=== PATIENT | male | born 1980 | race African-American/Black ===

== ENCOUNTER 2019-07-25 20:20 | Emergency (ER) | payer SELFPAY ==
[~2019-07-25] VITALS: Ht 172.7 cm; Wt 59.0 kg
[2019-07-25 20:35] VITALS: BP 154/100
--- NOTE | 2019-07-25 20:38 | NUR ---
TO BED # 02 AMBULATORY
--- NOTE | 2019-07-25 21:02 | NUR ---
39 Y/O MALE PLACED IN BED 2 C/O G-TUBE MECHANICAL FAILURE. THE BALLOON POPPED
--- NOTE | 2019-07-25 21:56 | NUR ---
PATIENT LEFT WITHOUT BEING SEEN AT THIS TIME. STATES HE DOES NOT WANT TO WAIT ANY MORE.
== END 2019-07-25 21:56 | disposition left against medical advice (07) ==
LOC: MED 20:20
DX: Z43.1 Encounter for attention to gastrostomy (principal); Z53.21 Procedure and treatment not carried out due to patient leaving prior to being seen by health care provider

== ENCOUNTER 2023-01-24 16:50 | Emergency (ER) | payer OTHER, MEDICAID ==
[~2023-01-24] VITALS: Ht 172.7 cm; Wt 54.4 kg
[2023-01-24 17:01] VITALS: BP 111/76; PULSE 84; RESP 18; TEMP 97.8; O2SAT 100
[2023-01-24 17:33] VITALS: BP 112/76; PULSE 82; RESP 18; TEMP 98; O2SAT 100
== END 2023-01-24 17:33 | disposition home or self-care (01) ==
LOC: MED 16:50
DX: K94.23 Gastrostomy malfunction (principal); Z79.899 Other long term (current) drug therapy
CPT/HCPCS: 99281

== ENCOUNTER 2023-02-07 14:41 | Emergency (ER) | payer OTHER, MEDICAID ==
[~2023-02-07] VITALS: Ht 172.7 cm; Wt 52.2 kg
[2023-02-07 14:51] VITALS: BP 119/41; PULSE 85; RESP 18; TEMP 97.8; O2SAT 99
== END 2023-02-07 16:38 | disposition home or self-care (01) ==
LOC: MED 14:41
DX: K94.23 Gastrostomy malfunction (principal); Z79.899 Other long term (current) drug therapy
CPT/HCPCS: 43246; 74018; 99284; Q0092

== ENCOUNTER 2023-06-13 20:38 | Emergency (ER) | payer OTHER, MEDICAID ==
[~2023-06-13] VITALS: Ht 172.7 cm; Wt 54.4 kg
[2023-06-13 20:40] VITALS: BP 107/78; PULSE 75; RESP 17; TEMP 98; O2SAT 100
[2023-06-13 21:45] VITALS: BP 107/78; PULSE 75; RESP 17; TEMP 98; O2SAT 100
== END 2023-06-13 21:45 | disposition home or self-care (01) ==
LOC: MED 20:38
DX: K94.23 Gastrostomy malfunction (principal); I10 Essential (primary) hypertension; Z90.49 Acquired absence of other specified parts of digestive tract; Z98.890 Other specified postprocedural states
CPT/HCPCS: 43762; 74240; 99284; Q0092; Q9967

== ENCOUNTER 2023-11-04 22:09 | Emergency (ER) | payer OTHER, MEDICAID ==
[~2023-11-04] VITALS: Ht 172.7 cm; Wt 56.7 kg
[2023-11-04 22:54] VITALS: BP 137/92; PULSE 78; RESP 16; TEMP 97.5; O2SAT 98
== END 2023-11-05 00:29 | disposition left against medical advice (07) ==
LOC: MED 22:09
DX: K94.23 Gastrostomy malfunction (principal); Z79.899 Other long term (current) drug therapy
CPT/HCPCS: 43762; 99284

== ENCOUNTER 2023-11-28 18:20 | Emergency (ER) | payer OTHER, MEDICAID ==
[~2023-11-28] VITALS: Ht 172.7 cm; Wt 59.0 kg
[2023-11-28 18:58] VITALS: BP 115/69; PULSE 77; RESP 16; TEMP 98; O2SAT 100
[2023-11-28 19:48] VITALS: BP 115/69; PULSE 77; RESP 16; TEMP 98; O2SAT 100
== END 2023-11-28 19:48 | disposition home or self-care (01) ==
LOC: MED 18:20
DX: S01.81XD Laceration without foreign body of other part of head, subsequent encounter (principal); Z48.02 Encounter for removal of sutures; I10 Essential (primary) hypertension; V89.2XXA Person injured in unspecified motor-vehicle accident, traffic, initial encounter; Y93.89 Activity, other specified; Y92.410 Unspecified street and highway as the place of occurrence of the external cause; Y99.8 Other external cause status
CPT/HCPCS: 99281

== ENCOUNTER 2023-12-30 17:57 | Emergency (ER) | payer OTHER, MEDICAID ==
[~2023-12-30] VITALS: Ht 172.7 cm; Wt 55.3 kg
[2023-12-30 18:14] VITALS: BP 122/82; PULSE 79; RESP 18; TEMP 98.7; O2SAT 99
== END 2023-12-30 20:09 | disposition left against medical advice (07) ==
LOC: MED 17:57
DX: K94.23 Gastrostomy malfunction (principal); Z53.21 Procedure and treatment not carried out due to patient leaving prior to being seen by health care provider

== ENCOUNTER 2023-12-31 20:03 | Emergency (ER) | payer OTHER, MEDICAID ==
[~2023-12-31] VITALS: Ht 172.7 cm; Wt 55.8 kg
[2023-12-31 20:31] VITALS: BP 120/85; PULSE 68; RESP 18; TEMP 98; O2SAT 100
== END 2023-12-31 21:05 | disposition home or self-care (01) ==
LOC: MED 20:03
DX: Z46.59 Encounter for fitting and adjustment of other gastrointestinal appliance and device (principal); K94.23 Gastrostomy malfunction; I10 Essential (primary) hypertension; Z98.890 Other specified postprocedural states
CPT/HCPCS: 43762; 99284

== ENCOUNTER 2024-03-21 07:16 | Emergency (ER) | payer OTHER, MEDICAID ==
[~2024-03-21] VITALS: Ht 172.7 cm; Wt 57.2 kg
[2024-03-21 07:19] VITALS: BP 125/91; PULSE 78; RESP 16; TEMP 98; O2SAT 99
[2024-03-21 08:25] VITALS: BP 135/84; PULSE 82; RESP 18; O2SAT 97
== END 2024-03-21 08:25 | disposition home or self-care (01) ==
LOC: MED 07:16
DX: K94.23 Gastrostomy malfunction (principal); I10 Essential (primary) hypertension
CPT/HCPCS: 43762; 99284